=== PATIENT | male | born 1955 | race Caucasian/White ===

== ENCOUNTER 2018-05-27 07:49 | Inpatient (IN) | payer BC ==
[2018-05-27] VITALS (22 sets, daily range): BP systolic 98–133; BP diastolic 53–77; PULSE 64–98; RESP 11–19; Ht 175.3 cm; Wt 77.9 kg
[~2018-05-27] VITALS: Ht 175.3 cm; Wt 77.9 kg
[2018-05-27] MEDS ORDERED: PARO12.517 PO (08:18)
[2018-05-27] MEDS ORDERED: VALA500T PO (08:18)
[2018-05-27] MEDS ORDERED: NASO17 NASAL (08:19)
[2018-05-27] MEDS ORDERED: ESOM40CA PO (08:19)
--- NOTE | 2018-05-27 11:35 | HPN ---
Date/Time of Note Date/Time of Note DATE: 05/27/18 TIME: 11:35 Interval H&P Admission Note Pt. seen H&P reviewed: No system changes MARGOT CARRINGTON PA-C May 27, 2018 11:35
[2018-05-27] MEDS ORDERED: BUPIVACAINE 0.5%/EPI (SDV) 30 ML INJ ONE (11:51)
[2018-05-27] MEDS ORDERED: POLYMYXIN/BACITRACIN 1L IRRIG ONE (11:51)
[2018-05-27] MEDS ORDERED: THROMBIN 5000 UNIT VIAL ONE (11:51)
[2018-05-27] MEDS ORDERED: SURGIFOAM POWDER 1 GM KIT ONE (11:51)
--- NOTE | 2018-05-27 11:54 | PREAC ---
Date/Time of Note Date/Time of Note DATE: 05/27/18 TIME: 11:49 Anesthesia Eval and Record Evaluation Time Pre-Procedure Interview DATE: 05/27/18 TIME: 11:49 Age 63 Sex male NPO: 8 hrs Preoperative diagnosis L5S1 spinal stenosis Planned procedure right lumbar 5-s1 microdiscectomy Past Medical History Past Medical History: Includes Cardio: Arrythmia (Afib or palpitatoin ?), Other Infection(s): Other (herpes) Surgery & Anesthesia Issues No known issue Meds Anticoagulation: No Beta Robbin within 24 hr: No Reason Beta Robbin not given: Pt. not on B-Robbin Reported Medications Mometasone Furoate* (Nasonex*) 50 Mcg/[place] - 17 Gm [place].pump, 1 SPRAY NASAL DAILY, #1 BOTTLE TO EACH NOSTRIL 05/27/18 Esomeprazole Mag Trihydrate (Nexium) 40 Mg Capsule.dr, 40 MG PO QHS, #30 CAP 05/27/18 Paroxetine Hcl* (Paxil* CR) 12.5 Mg Tab.sr.24h, 12.5 MG PO DAILY, TAB.SA 05/27/18 valAcyclovir Hcl* (valACYclovir Hcl*) 500 Mg Tablet, 1000 MG PO DAILY, TAB 05/27/18 Current Medications Potassium Chloride/Dextrose/ Sod Cl 1,000 ml @ 100 mls/hr Q10H IV ; Start 05/27/18 at 11:35; Status UNV Acetaminophen/ Hydrocodone Bitart ([place] (10/325)) 1 tab Q4H PRN PO .PAIN 1-5; Start 05/27/18 at 12:00; Status UNV Acetaminophen/ Hydrocodone Bitart ([place] (10/325)) 2 tab Q4H PRN PO .PAIN 6-10; Start 05/27/18 at 12:00; Status UNV Hydromorphone HCl (Dilaudid) 0.2 mg Q1H PRN IV .BREAKTHROUGH PAIN; Start 05/27/18 at 12:00; Status UNV Cefazolin Sodium 50 ml @ 100 mls/hr Q8H IVPB ; Start 05/27/18 at 12:00; Stop 05/28/18 at 04:29; Status UNV Ondansetron HCl (Zofran Inj) 4 mg Q6H PRN IV NAUSEA/VOMITING; Start 05/27/18 at 12:00; Status UNV Bisacodyl (Dulcolax Supp) 10 mg DAILY PRN [place] .CONSTIPATION; Start 05/27/18 at 12:00; Status UNV Docusate Sodium (Colace) 100 mg BID PO ; Start 05/27/18 at 21:00; Status UNV Pantoprazole (Protonix Iv) 40 mg DAILY@06 IV ; Start 05/28/18 at 06:00; Status UNV Al Hydrox/Mg Hydrox/Simethicone (Mag-Al Plus) 15 ml Q6H PRN PO .CO NSTIPATION/DYSPEPSIA; Start 05/27/18 at 12:00; Status UNV Acetaminophen (Tylenol Tab) 650 mg Q4H PRN PO ROSA OR TEMP GREATER THAN 101.3F; Start 05/27/18 at 12:00; Status UNV Cyclobenzaprine HCl (Flexeril) 5 mg TID PRN PO .MUSCLE SPASM; Start 05/27/18 at 12:00; Status UNV Phenol (Cepastat Lozenge) 1 lozenge PRN PRN [place] .SORE THROAT; Start 05/27/18 at 12:00; Status UNV Diphenhydramine HCl (Benadryl) 25 mg Q6H PRN PO .ITCHING; Start 05/27/18 at 12:00; Status UNV Diphenhydramine HCl (Benadryl) 25 mg Q6H PRN IV .ITCHING; Start 05/27/18 at 12:00; Status UNV Naloxone HCl (Narcan) 0.2 mg Q2M PRN IV .RR 8 BREATHS/MIN OR LESS; Start 05/27/18 at 12:00; Status UNV Meds reviewed: Yes Allergies Coded Allergies: Iodine and Iodide Containing Produc (Verified Allergy, Unknown, BREATHING, 05/27/18) Allergies Reviewed: Yes Labs/Studies Labs Reviewed: Reviewed by anesthesiologist test: N/A Studies: ECG (sr) Pre-procedure Exam Last vitals Vital Signs Date Temp Pulse Resp B/P (MAP) Pulse Ox O2 O2 Flow FiO2 Time Delivery Rate 05/27/18 98.1 69 18 120/68 97 Room Air 08:47 (85) Airway: Adequate mouth opening Mallampati: Mallampati II Teeth: Normal Lung: Normal Heart: Normal ASA Physical Status ASA physical status: 2 Emergency: None Planned Anesthetic General/MAC: ETT Planned Pain Management Parenteral pain med Pre-operative Attestations Prior to commencing anesthesia and surgery, the patient was re-evaluated, there was verification of: *The patient's identity *The results of appropriate recent lab work and preoperative vital signs *The above evaluation not changing prior to induction *Anesthetic plan, risk benefits, alternative and complications discussed with patient/family; questions answered; patient/family understands, accepts and wishes to proceed. MARYLU PATEL MD May 27, 2018 11:54
[2018-05-27] MEDS ORDERED: ONDANSETRON 4 MG INJ IV PRN ×3 (12:00→20:00)
[2018-05-27] MEDS ORDERED: AL HYDROX/MG HYDROX/SIMETH 30 ML CUP PO PRN (12:00)
[2018-05-27] MEDS ORDERED: NALOXONE (0.4 MG/ML) INJ IV PRN (12:00)
[2018-05-27] MEDS ORDERED: DIPHENHYDRAMINE 25 MG CAP PO PRN (12:00)
[2018-05-27] MEDS ORDERED: HYDROmorphONE 0.5 MG/0.5 ML SYG IV PRN (12:00)
[2018-05-27] MEDS ORDERED: BISACODYL 10 MG SUPP PR PRN (12:00)
[2018-05-27] MEDS ORDERED: HYDROCODONE/APAP (10/325) TAB PO PRN (12:00)
[2018-05-27] MEDS ORDERED: CEPASTAT LOZENGE MT PRN (12:00)
[2018-05-27] MEDS ORDERED: ACETAMINOPHEN 325 MG TAB PO PRN (12:00)
[2018-05-27] MEDS ORDERED: DIPHENHYDRAMINE 50 MG INJ IV PRN ×3 (12:00→20:00)
[2018-05-27] MEDS ORDERED: PROPOFOL 20 ML ONE ×2 (12:07→12:22)
[2018-05-27] MEDS ORDERED: SUCCINYLCHOLINE CHLORIDE 100 MG/5 ML SYG IV ONE (12:07)
[2018-05-27] MEDS ORDERED: ONDANSETRON 4 MG INJ ONE (12:08)
[2018-05-27] MEDS ORDERED: METOCLOPRAMIDE 10 MG INJ ONE (12:08)
[2018-05-27] MEDS ORDERED: PHENYLephrine (100 MCG/ML) 10ML SYG ONE (12:17)
[2018-05-27] MEDS ORDERED: HYDROmorphONE 2 MG/ML SYG ONE (12:21)
[2018-05-27] MEDS ORDERED: CEFAZOLIN 1 GM INJ ONE (12:21)
[2018-05-27] MEDS ORDERED: ROCURONIUM 50 MG INJ ONE (12:29)
[2018-05-27] MEDS ORDERED: LABETALOL HCL 20MG INJ IV PRN (13:00)
[2018-05-27] MEDS ORDERED: EPHEDrine 50 MG INJ ONE (13:00)
[2018-05-27] MEDS ORDERED: hydrALAzine 20 MG INJ IV PRN (13:00)
[2018-05-27] MEDS ORDERED: MEPERIDINE 25 MG INJ IV PRN ×2 (13:00→20:00)
[2018-05-27] MEDS ORDERED: HYDROmorphONE 1 MG/5 ML IV SYRINGE IV PRN ×6 (13:00→20:00)
[2018-05-27] MEDS ORDERED: GLYCOPYRROLATE 0.4 MG INJ ONE (14:42)
[2018-05-27] MEDS ORDERED: NEOSTIGMINE 3 MG/3 ML SYRINGE ONE (14:42)
--- NOTE | 2018-05-27 14:50 | SIPON ---
Date/Time of Note Date/Time of Note DATE: 05/27/18 TIME: 14:50 Operative Report Preoperative Diagnosis Recurrent disc herniation Postoperative Diagnosis Recurrent disc herniation Operation/Procedure Performed Revision microdiscectomy Surgeon see signature line treasury assistant Tessa Quesada Anesthesia: general Estimated blood loss: 10 - 50 ml's Transfusion Required none Specimen Disc Grafts/Implants none Complications none MARTINEZ LOOMIS MD May 27, 2018 14:50
[2018-05-27] MEDS: CEFAZOLIN 1 GM/50 ML (PMX) 50 ML IVPB SCH ×2 (15:27→20:28)
--- NOTE | 2018-05-27 15:37 | OPR ---
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 PROCEDURES: 1. Revision of right L5 to S1 lumbar microdiskectomy. 2. Use of operative microscope. 3. Lateral localizing film x2. 4. Intraoperative neuromonitoring. 5. Spinous process osteotomy. PRIMARY SURGEON: Abdullahi Parmar MD REHABILITATION CONSTRUCTION SPECIALIST: Tessa Quesada PA-C NEED FOR TAPE EDGE MACHINE OPERATOR: During this spinal surgical procedure, my housekeeper and laundry assistant was used to retract and protect the spinal nerves and dural sac. My housekeeper and laundry assistant also employed the suction catheters to ev acuate blood from the surgical field to improve visualization of the neural structures. The assistan t was medically necessary to facilitate the completion of the surgery in a safe and expeditious [facility]. [facility] regulations, as well as hospital bylaws, preclude the use of non-licensed [facility] care personnel, such as operating room technicians, to perform these functions. FINDINGS: Neuromonitoring at the start of the case revealed right L5 amplitude down 30%, right S1 do wn 20%. The patient has recurrent extrusion at the L5 to S1 level causing stenosis. Scar tissue was encountered. ESTIMATED BLOOD LOSS: 40 mL. DRAINS: None. SPECIMENS: L5 to S1 disk. COMPLICATIONS OF PROCEDURES: None. ANESTHESIOLOGIST: Kathie Teresa MD TYPE OF ANESTHESIA: General. INDICATIONS FOR PROCEDURE: This 63-year-old gentleman with right lumbar radiculopathy in setting of recurrent disk herniation at the L5 to S1 level. He failed nonoperative measures; therefore I recomm ended that he undergo the above procedure. Preoperatively, we discussed risks, benefits and alternat shabbir. He understood and wished to proceed. DESCRIPTION OF PROCEDURE IN DETAIL: The patient was identified in the holding area, given Ancef anti biotics, taken to the operating room. He was successfully placed under general anesthesia. Neuromon itoring were placed. Sequential devices were applied. Remote intraoperative neuromonitoring was per formed by Dr. Alvarado to include SSEP, MEP and EMG performed by [employer] Neuromonitoring was utilized from 11:15 until 14:30. The patient was taken to the operating table in prone position over a Miguel frame. All bony prominences were padded. The back was then prepped and draped in usua l sterile fashion. I utilized the patient's previous incision. I incised down to dorsal fascia, whi ch was incised with Bovie cautery. I then subperiosteally dissected the right L5 and S1 lamina. Ins trument was placed over the lamina of L5 and lateral films were obtained to confirm the correct level s. Once this was confirmed, microscope was brought in. I continued the exposure as the patient had quite a bit of scar tissue. He also had the spinous process dangling on top of the lamina of L5 and therefore, I did perform an osteotomy of the spinous process in order to allow visualization. Once I cleaned off the margins of the lamina, I used a high-speed bur to thin down the lamina of L5 and I w as able to then perform a hemilaminotomy, partial medial facetectomy and foraminotomy of S1. At this point, I then identified the S1 nerve root. I encountered extruded fragment. I was able to remove the extruded fragment. I removed multiple extruded fragments in fact. I then identified the annulus , made an annulotomy into disk space. The disk material seemed gouty in nature. I removed this and performed a diskectomy. I sent the disk to pathology. Once this was done, all nerve signals returne d to normal. I irrigated the disk space and the wound. Retractors were removed. Microscope was salvador en off the field and I proceeded to close the wound in layers, closing deep fascia with #1 Vicryl sti tch by 2-0 subcutaneous closure and a 4-0 Monocryl subcuticular closure. Dermabond was then applied. The patient was then awakened from anesthesia and taken to the recovery room in stable condition. Lap, sponge and instrument counts were correct x2. There were no apparent complications during the p rocedure. The patient will be admitted to the [facility] for routine postoperative care to include pain co ntrol, neurovascular checks, antibiotics and physical therapy. Dictated By: ABDULLAHI PARMAR MD BB/NTS Conf#: [id number] DID#: [id number] CC: SKYLAR WYMAN MD;*EndCC*
[2018-05-27] MEDS: D5W-0.45 NACL + KCL 20 MEQ 1,000 ML IV SCH ×2 (16:00→21:35)
[2018-05-27] MEDS: HYDROCODONE/APAP (10/325) TAB PO PRN ×2 (16:12→20:30)
--- NOTE | 2018-05-27 18:44 | PAC ---
Date/Time of Note Date/Time of Note DATE: 05/27/18 TIME: 18:44 Post-Anesthesia Notes Post-Anesthesia Note Last documented vital signs Vital Signs Date Temp Pulse Resp B/P (MAP) Pulse Ox O2 O2 Flow FiO2 Time Delivery Rate 05/27/18 98.2 79 19 133/70 96 16:27 (91) 05/27/18 Room Air 15:42 05/27/18 2.0 15:12 Activity: WNL Respiratory function: WNL Cardiovascular function: WNL Mental status: Baseline Pain reasonably controlled: Yes Hydration appropriate: Yes Nausea/Vomiting absent: No MARYLU PATEL MD May 27, 2018 18:44
--- NOTE | 2018-05-27 19:03 | CONS ---
DATE OF ADMISSION: 05/27/2018 DATE OF CONSULTATION: TYPE OF CONSULTATION: Medical. Thank you, Dr. Parmar, for asking me to participate in medical management of this patient. REASON FOR CONSULTATION: To manage the patient's gastroesophageal reflux disease, depression, allerg ic rhinitis. HISTORY OF PRESENT ILLNESS: This 63-year-old man is now postop a lumbar spine surgery by Dr. Arciniega na today. The patient is awake and alert. He underwent a revision of right L5 to S1 lumbar microdis cectomy. He is awake and alert. He seems comfortable and his pain is under control on current medic ation. The patient was having low back pain with right lumbar radiculopathy due to a disk herniation of the L5 to S1 level. He did fail conservative medical management. PAST MEDICAL HISTORY: Depression, allergic rhinitis, gastroesophageal reflux disease. He has no his tory of hypertension, heart disease, diabetes mellitus. Kidney stones, migraine headaches, vertigo. CURRENT MEDICATIONS: Include the followin. Nexium 40 mg a day. 2. Valacyclovir 1000 mg a day. 3. Nasonex spray. 4. Paxil CR 12.5 mg a day. SOCIAL HISTORY: He has never smoked. Drinks alcohol, beer mostly. PHYSICAL EXAMINATION: GENERAL: At this time reveals a well-developed man in no apparent distress. He says that he is comf ortable. VITAL SIGNS: Shows a temperature of 98.2, pulse is 79, respirations 19, blood pressure 133/70, O2 sa turation of 96% on 2-liter nasal cannula. HEENT: Head is normocephalic. Eyes: Extraocular muscles are intact. Nose and mouth are normal. NECK: Supple. No neck vein distention. LUNGS: Clear to auscultation. HEART: Regular rhythm. No murmurs, gallops or rubs. ABDOMEN: Soft, nontender. No masses or megaly. EXTREMITIES: No peripheral edema. IMPRESSION: This patient is doing well after lumbar spine surgery today. He is awake and alert and his pain is under control. I will manage the patient's gastroesophageal reflux disease, allergic rhi nitis and depression. PLAN: 1. Resume routine medications. 2. Check labs in the morning. 3. Postop surgical lumbar spine protocol. 4. I will follow the patient along with you. Dictated By: TI SILVA MD ND/NTS Conf#: [id number] DID#: [id number] CC: SKYLAR WYMAN MD; MARTINEZ PARMAR MD;*[facility]*
[2018-05-27] MEDS: valACYclovir 500 MG TAB PO SCH (19:35)
[2018-05-27] MEDS ORDERED: FENTAnyl 50 MCG/ML VIAL IV PRN ×3 (20:00)
[2018-05-27] MEDS: FAMOTIDINE 20 MG INJ IV SCH (20:27)
[2018-05-27] MEDS: PAROXETINE (CR) 12.5 MG TAB PO SCH (20:28)
[2018-05-27] MEDS: DOCUSATE SODIUM 100 MG CAP PO SCH (20:29)
[2018-05-28] MEDS: HYDROCODONE/APAP (10/325) TAB PO PRN ×4 (00:36→12:59)
[2018-05-28] MEDS: D5W-0.45 NACL + KCL 20 MEQ 1,000 ML IV SCH (04:15)
[2018-05-28] MEDS: CEFAZOLIN 1 GM/50 ML (PMX) 50 ML IVPB SCH (04:16)
[2018-05-28] MEDS: CYCLOBENZAPRINE 10 MG TAB PO PRN ×2 (04:22→09:25)
[2018-05-28 04:33] VITALS: BP 107/58; PULSE 70; RESP 18
[2018-05-28] MEDS ORDERED: PANTOPRAZOLE (EC) 40 MG TAB PO SCH (06:00)
[2018-05-28] MEDS ORDERED: PANTOPRAZOLE 40 MG INJ IV SCH (06:00)
[2018-05-28 07:47] VITALS: BP 99/56; PULSE 72; RESP 18
[2018-05-28] MEDS: PAROXETINE (CR) 12.5 MG TAB PO SCH (08:34)
[2018-05-28] MEDS: valACYclovir 500 MG TAB PO SCH (08:34)
[2018-05-28] MEDS: DOCUSATE SODIUM 100 MG CAP PO SCH (08:35)
[2018-05-28] MEDS: FAMOTIDINE 20 MG INJ IV SCH (09:05)
--- NOTE | 2018-05-28 10:29 | PN ---
Date/Time of Note Date/Time of Note DATE: 05/28/18 TIME: 10:28 Assessment/Plan Lines/Catheters IV Catheter Type (from Nrsg): Peripheral IV Assessment/Plan Assessment/Plan pod #1 s/p discectomy. c/o pain. continue with PT and pain control. d/c planning with home health nurse Subjective 24 Hr Interval Summary c/o pain Exam/Review of Systems Vital Signs Vitals Vital Signs Date Temp Pulse Resp B/P (MAP) Pulse Ox O2 O2 Flow FiO2 Time Delivery Rate 05/28/18 99.0 72 18 99/56 (70) 95 Room Air 07:47 05/27/18 2.0 16:00 Intake and Output 05/27/18 05/27/18 05/28/18 1515:00 23:00 07:00 IntakeIntake Total 1600 ml 390 ml 1770 ml OutputOutput Total 40 ml 300 ml 850 ml BalanceBalance 1560 ml 90 ml 920 ml Exam Free Text/Dictation right foot numbness Results Result Diagram: 05/28/18 0423 05/28/18 0423 MARTINEZ LOOMIS MD May 28, 2018 10:29
--- NOTE | 2018-05-28 18:30 | CONS ---
Assessment/Plan Assessment/Plan Hospital Course (Demo Recall) 1. Arturo is 1 day post op a lumbar spine surgery . He is feeling better . His pain is controlled on current medication . He is afebrile and can be discharged home when cleared by ortho and PT . Consultation Date/Type/Reason Admit Date/Time May 27, 2018 at 07:49 Initial Consult Date Date/Time of Note DATE: 05/28/18 TIME: 18:26 24 HR Interval Summary Free Text/Dictation Arturo is now 1 day post op a lumbar spine surgery . He is awake and alert and is feeling better . Constitutional: no complaints, improved Exam/Review of Systems Exam Vitals Vital Signs Date Temp Pulse Resp B/P (MAP) Pulse Ox O2 O2 Flow FiO2 Time Delivery Rate 05/28/18 99.0 72 18 99/56 (70) 95 Room Air 07:47 05/27/18 2.0 16:00 Intake and Output 05/27/18 05/27/18 05/28/18 1515:00 23:00 07:00 IntakeIntake Total 1600 ml 390 ml 1770 ml OutputOutput Total 40 ml 300 ml 850 ml BalanceBalance 1560 ml 90 ml 920 ml Constitutional: alert, oriented, well developed Respiratory: clear to auscultation, normal air movement Cardiovascular: regular rate and rhythm Gastrointestinal: soft, non-tender Musculoskeletal: nl extremities to inspection Results Result Diagram: 05/28/18 0423 05/28/18 0423 Results 24hrs Laboratory Tests Test 05/28/18 04:23 05/28/18 07:06 White Blood Count 7.1 Red Blood Count 3.57 L Hemoglobin 11.7 L Hematocrit 34.7 L Mean Corpuscular Volume 97.2 Mean Corpuscular Hemoglobin 32.8 Mean Corpuscular Hemoglobin Concent 33.7 Red Cell Distribution Width 12.0 Platelet Count 201 Mean Platelet Volume 10.6 H Immature Granulocytes % 0.300 Neutrophils % 71.9 Lymphocytes % 18.2 Monocytes % 7.9 Eosinophils % 1.3 Basophils % 0.4 Nucleated Red Blood Cells % 0.0 Immature Granulocytes # 0.020 Neutrophils # 5.1 Lymphocytes # 1.3 Monocytes # 0.6 Eosinophils # 0.1 Basophils # 0.0 Nucleated Red Blood Cells # 0.0 Sodium Level 140 Potassium Level 4.1 Chloride Level 102 Carbon Dioxide Level 30 Anion Gap 8 Blood Urea Nitrogen 10 Creatinine 0.79 Est Glomerular Filtrat Rate mL/min > 60 Glucose Level 99 Calcium Level 8.7 Magnesium Level 1.8 Lab Scanned Report REFERENCE LAB TI SILVA MD May 28, 2018 18:30
--- NOTE | 2018-05-29 07:59 | DS ---
Date/Time of Note Date/Time of Note DATE: 05/29/18 TIME: 07:58 Discharge Summary Admission/Discharge Info Admit Date/Time May 27, 2018 at 07:49 Discharge Date/Time May 28, 2018 at 14:35 Discharge Diagnosis Status post discectomy Patient Condition: Good Procedures Lumbar discectomy Hospital Course Patient was admitted to the [facility]opedic [facility] after undergoing the above surgery. His postoperative course was uncomplicated. By postoperative day 1 he was deemed stable for discharge with follow-up arranged with the undersigned. Home health has been arranged. Home Meds Reported Medications Mometasone Furoate* (Nasonex*) 50 Mcg/[place] - 17 Gm [place].pump, 1 SPRAY NASAL DAILY, #1 BOTTLE TO EACH NOSTRIL 05/27/18 Esomeprazole Mag Trihydrate (Nexium) 40 Mg Capsule.dr, 40 MG PO QHS, #30 CAP 05/27/18 Paroxetine Hcl* (Paxil* CR) 12.5 Mg Tab.sr.24h, 12.5 MG PO DAILY, TAB.SA 05/27/18 valAcyclovir Hcl* (valACYclovir Hcl*) 500 Mg Tablet, 1000 MG PO DAILY, TAB 05/27/18 Primary Care Provider Not On Staff Doctor MARTINEZ LOOMIS MD May 29, 2018 07:59
[2018-05-29] MEDS ORDERED: INFLUENZA VIRUS VACCINE 0.5 ML (DISPENSING) IM* ONE (10:00)
== END 2018-05-28 14:35 | disposition home or self-care (01) | DRG 520 ==
LOC: REC 07:49 → MS1 15:45
PROVIDERS: ADMIT Specialist; ATTEND Specialist
PROC: 0SB40ZZ Excision of Lumbosacral Disc, Open Approach (ICD-10-PCS; principal; 2018-05-27 11:00)
DX: M51.17 Intervertebral disc disorders with radiculopathy, lumbosacral region (principal); M48.07 Spinal stenosis, lumbosacral region
CPT/HCPCS: 72020; 80048; 83735; 85025; 86999; 88304; 97116; 97161; 97530; C9113; J0690; J1170; J2370; J2405; J2710; J2765; J3480